=== PATIENT | male | born 1945 | race American Indian/Alaskan Native ===

== ENCOUNTER 2017-04-18 14:01 | Emergency (ER) | payer MEDICARE ==
[2017-04-18 14:14] VITALS: BP 152/80; PULSE 89; RESP 16; TEMP 98.2; O2SAT 99
[2017-04-18] MEDS ORDERED: TDAP Vaccine 0.5 mL Syr IM ONE (15:01)
--- NOTE | 2017-04-18 15:02 | ED PDOC ---
Arrival/HPI - General Chief Complaint: Abnormal Skin Integrity Time Seen by Provider: 04/18/17 15:01 Historian: Patient - History of Present Illness Narrative History of Present Illness (Text): 04/18/17 15:01 This 72 yo male presents to to this ED c/o right 4th finger injury x [employer]. Patient stated he was using a power snake tool, when his finger was twisted. He was wearing gloves. Patient noticed a laceration distal finger. Patient can not fully extend distal tip of right 4th finger. Last tetanus is UKN. Denies other somatic complains. Time/Duration: Prior to Arrival Context: Home Past Medical History - Provider Review Nursing Documentation Reviewed: Yes - Cardiac Hx Cardiac Disorders: Yes Hx Hypertension: Yes - Pulmonary Hx Respiratory Disorders: No - Neurological Hx Neurological Disorder: No - HEENT Hx HEENT Disorder: No - Renal Hx Renal Disorder: No - Endocrine/Metabolic Hx Endocrine Disorders: Yes Hx Diabetes Mellitus Type 2: Yes - Hematological/Oncological Hx Blood Disorders: No - Integumentary Hx Dermatological Disorder: No - Musculoskeletal/Rheumatological Hx Musculoskeletal Disorders: No - Gastrointestinal Hx Gastrointestinal Disorders: No - Genitourinary/Gynecological Hx Genitourinary Disorders: No - Psychiatric Hx Psychophysiologic Disorder: No Hx Substance Use: No Family/Social History - Physician Review Nursing Documentation Reviewed: Yes Family/Social History: Other (noncontributory) Smoking Status: Never Smoked Hx Alcohol Use: Yes Frequency of alcohol use: Socially Hx Substance Use: No Allergies/Home Meds Allergies/Adverse Reactions: Allergies No Known Allergies Allergy (Verified 04/18/17 14:07) Review of Systems - Review of Systems Constitutional: Normal. absent: Fatigue, Weight Change, Fevers Eyes: Normal ENT: Normal Respiratory: Normal Cardiovascular: Normal Gastrointestinal: Normal Genitourinary Male: Normal Musculoskeletal: Other (right 4th finger tip laceration) Skin: Normal Neurological: Normal Endocrine: Normal Hemo/Lymphatic: Normal Psychiatric: Normal Physical Exam Vital Signs Reviewed: Yes Vital Signs Temp Pulse Resp BP Pulse Ox 04/18/17 14:12 98.2 F 89 16 152/80 H 99 Temperature: Afebrile Blood Pressure: Normal Pulse: Regular Respiratory Rate: Normal Appearance: Positive for: Well-Appearing, Non-Toxic, Comfortable Pain Distress: None Mental Status: Positive for: Alert and Oriented X 3 - Systems Exam Head: Present: Atraumatic, Normocephalic Mouth: Present: Moist Mucous Membranes Upper Extremity: Present: NORMAL PULSES, Neurovascularly Intact, Capillary Refill < 2s, Other ((+) right distal dorsl 4th finger , transverse laceration. Distal phalanx appears on a mild flexed position. ). No: Cyanosis, Edema Lower Extremity: Present: Normal Inspection, Normal ROM Neurological: Present: GCS=15, CN II-XII Intact, Speech Normal, Motor Func Grossly Intact, Normal Sensory Function, Normal Cerebellar Funct, Gait Normal, Other Skin: Present: Warm, Dry, Normal Color. No: Rashes Psychiatric: Present: Alert, Oriented x 3, Normal Insight, Normal Concentration Medical Decision Making ED Course and Treatment: 04/18/17 16:41 Plan: -- Boostrix Vaccine Inj -- Hand Right 4TH digit x-ray -- Reassess and disposition Progress Notes: PROCEDURE: LACERATION REPAIR Performed by Medical student Benjamín supervised by me. Location: right fourth finger dorsal aspect Length: 1 cm Description: {"clean wound edges","no foreign bodies"} Distal CMS: Normal. No deficits. Neurovascularly intact. Anesthesia: Lidocaine 1% Preparation: The wound was cleaned with NS and Betadyne. The area was prepped and draped in the usual sterile fashion. Exploration: The wound was explored and no foreign bodies were found. Procedure: The wound was closed with 4-0 nylon. There was good approximation. In total, 3 sutures were used. Post-Procedure: Good closure and hemostasis. The patient tolerated the procedure well and there were no complications. CSM remains intact. Post procedure dressing applied. 04/18/17 16:40 I recommended patient to call hand specialist for earliest appointment and revaluation of finger injury. Patient was recommended to wear finger splint till evaluated by hand doctor. To keep wound clean and dry for 2 days, then to clean wound daily with soap and water. to return to emergency if wound becomes infected. 04/18/17 16:44 Patient family member requested to speak with person in charge in this ED. She wants ED to set up f/u appointment with hand specialist. Dr. Corona spoke with family member and patient. We recommended patient to call hand doctor and make an appointment themselves at their earliest convenience. They understood importance of f/u with hand doctor. Re-evaluation Time: 16:53 Reassessment Condition: Re-examined, Improved - RAD Interpretation Narrative RAD Interpretations (Text): 04/18/17 16:53 Finger x-rays: No fx Radiology Orders: 04/18/17 15:07 HAND RIGHT 4TH DIGIT (FINGER) [RAD] Stat - Medication Orders Current Medication Orders: Discontinued Medications Tetanus/Reduced Diphtheria/Acell Pertussis (Boostrix Vaccine Inj) 0.5 ml IM .ONCE ONE Stop: 04/18/17 15:02 Last Admin: 04/18/17 16:27 Dose: 0.5 ml Immunization Registry Document 04/18/17 16:27 OCS (Rec: 04/18/17 16:27 OCS [id number]) Immunization Registry Consent Date 04/18/17 Disposition/Present on Arrival - Present on Arrival Any Indicators Present on Arrival: No History of DVT/PE: No History of Uncontrolled Diabetes: Yes Urinary Catheter: No History of Decub. Ulcer: No History Surgical Site Infection Following: None - Disposition Have Diagnosis and Disposition been Completed?: Yes Diagnosis: Finger laceration Disposition Time: 16:54 Patient Plan: Discharge Patient Problems: Current Active Problems Problem Status Onset Finger laceration Acute Condition: IMPROVED Discharge Instructions (ExitCare): Finger Laceration (ED) Additional Instructions: Call hand specialist for follow up appointment in 2-3 days. Keep wound clean and dry for 2 days, then clean wound daily with soap and water. Apply wound dressing or band aid on wound. Return to emergency if wound becomes infected. Use finger splint after 2 days till evaluated by hand doctor. return to emergency if pain worsen, sign of infection or if new symptoms arise Prescriptions: Cephalexin [Keflex] 500 mg PO QID #20 capsule Referrals: Ruben August MD [Staff Provider] - Follow up with primary Dudley Loza MD [Staff Provider] - Follow up with primary Yumiko Dwyer MD [Non-Staff] - Follow up with primary Forms: [employer] (Thai)
[2017-04-18] MEDS ORDERED: Lidocaine 1% Inj (20ml) ONE (15:20)
--- NOTE | 2017-04-18 16:09 | RAD ---
PROCEDURE: Right ring finger radiographs. HISTORY: trauma COMPARISON: None. TECHNIQUE: AP radiograph of the right hand, as well as spot oblique and lateral images of ring finger were obtained. FINDINGS: RIGHT RING FINGER: Normal right ring finger, without fracture or focal lesion. Remainder of the right hand (as seen on the AP view) grossly unremarkable. JOINTS: Normal. SOFT TISSUES: Normal. OTHER FINDINGS: None. IMPRESSION: Normal right ring finger radiographs. Concordant results with the preliminary interpretation rendered by the emergency department physician procedure.
== END 2017-04-18 17:03 | disposition home or self-care (01) ==
LOC: ED 14:01
DX: S61.214A Laceration without foreign body of right ring finger without damage to nail, initial encounter (principal); W31.89XA Contact with other specified machinery, initial encounter; E11.9 Type 2 diabetes mellitus without complications; I10 Essential (primary) hypertension; Z23 Encounter for immunization